=== PATIENT | female | born 1935 | race Caucasian/White ===

== ENCOUNTER 2020-10-08 12:13 | Emergency (ER) | payer MEDICARE ==
[~2020-10-08] VITALS: Ht 160 cm; Wt 52.0 kg
[2020-10-08 12:38] LABS: BILIRUBIN,URINE NEGATIVE (NEG); CLARITY,URINE CLEAR; COLOR,URINE YELLOW; NITRITE,URINE POSITIVE (NEG); PH,URINE 6.5 (<5.0-8.0); PROTEIN,URINE NEGATIVE (NEG-TRACE)
[2020-10-08 12:44] LABS: BACTERIA,URINE MANY /HPF (0-FEW); RBC,URINE 0 /HPF (0-2)
[2020-10-08 12:45] LABS: BARBITURATES NEG (NEG); BENZODIAZEPINES NEG (NEG); CANNABINOIDS NEG (NEG); COCAINE NEG (NEG); METHADONE NEG (NEG); OPIATES NEG (NEG); PHENCYCLIDINE NEG (NEG)
[2020-10-08 12:48] LABS: AMPHETAMINE/METHAMPHETAMINE NEG (NEG)
[2020-10-08 13:25] LABS: BASO # 0.1 x10^3/uL (0.0-0.2); BASO % 1 % (0-3); EOS # 0.2 x10^3/uL (0.0-0.7); EOS % 2 % (0-3); HEMATOCRIT 41.2 % (36.0-47.0); LYMPH # 1.2 x10^3/uL (1.0-4.8); LYMPH % 15 % (24-48); MEAN CORPUSCULAR HEMOGLOBIN 32 pg (25-35); MEAN CORPUSCULAR HGB CONC 34 g/dL (31-37); MEAN CORPUSCULAR VOLUME 95 fL (79-100); MONO % 13 % (0-9); NEUT # 5.5 x10^3/uL (1.8-7.7); NEUT % 68 % (31-73); PLATELET COUNT 408 x10^3/uL (140-400); RED BLOOD COUNT 4.36 x10^6/uL (3.50-5.40); RED CELL DISTRIBUTION WIDTH 14.9 % (11.5-14.5)
[2020-10-08 13:46] LABS: CALCIUM 9.8 mg/dL (8.5-10.1); POTASSIUM 4.3 mmol/L (3.5-5.1)
[2020-10-08 13:52] LABS: ACETAMIN < 2 mcg/ml (10-30); ALBUMIN 3.8 g/dL (3.4-5.0); ALBUMIN/GLOBULIN RATIO 1.2 (1.0-1.7); ETHANOL < 10 mg/dL (0-10); SALIC < 2.8 mg/dL (2.8-20.0); TOTAL BILIRUBIN 0.6 mg/dL (0.2-1.0); TOTAL PROTEIN 7.1 g/dL (6.4-8.2)
[2020-10-08 14:48] VITALS: BP 129/78
--- NOTE | 2020-10-08 14:56 | PHYS DOC ---
Past Medical History Additional Past Medical Histor: ALZHEIMER'S Past Surgical History: Other Additional Past Surgical Histo: UNKNOWN Smoking Status: Unknown if ever smoked Alcohol Use: None Additional Information: UNKNOWN General Adult EDM: Chief Complaint: PSYCH EVALUATION HPI: HPI: Patient is a 85 year old female who presents with here from the [facility] after she called another resident a " nigger" and the other resident and her got into a argument. The facility sent her here to be evaluated and placed possibly in a geriatric psych facility. [facility]. He states that she is acting normal for herself. She is pleasantly confused she does know her name. Patient does not look to have any injuries on hospital. Patient has a history of Alzheimer's, [place], back pain. Review of Systems: Review of Systems: Constitutional: Denies fever or chills. [] Eyes: Denies change in visual acuity. [] HENT: Denies nasal congestion or sore throat. [] Respiratory: Denies cough or shortness of breath. [] Cardiovascular: Denies chest pain or edema. [] GI: Denies abdominal pain, nausea, vomiting, bloody stools or diarrhea. [] : Denies dysuria. [] Musculoskeletal: Denies back pain or joint pain. [] Integument: Denies rash. [] Neurologic: Denies headache, focal weakness or sensory changes. + Worsening dementia with aggression [] Endocrine: Denies polyuria or polydipsia. [] Lymphatic: Denies swollen glands. [] Psychiatric: Denies depression or anxiety. [] Heart Score: C/O Chest Pain: No Risk Factors: Risk Factors: DM, Current or recent (<one month) smoker, HTN, HLP, family history of CAD, obesity. Risk Scores: Score 0 - 3: 2.5% MACE over next 6 weeks - Discharge Home Score 4 - 6: 20.3% MACE over next 6 weeks - Admit for Clinical Observation Score 7 - 10: 72.7% MACE over next 6 weeks - Early Invasive Strategies Allergies: Allergies: Allergies Coded Allergies Type Severity Reaction Last Updated Verified codeine Allergy Intermediate 10/08/20 Yes morphine Allergy Intermediate 10/08/20 Yes Physical Exam: PE: Constitutional: Well developed, well nourished, no acute distress, non-toxic appearance. [] HENT: Normocephalic, atraumatic, bilateral external ears normal, oropharynx moist, no oral exudates, nose normal. [] Eyes: PERRLA, EOMI, conjunctiva normal, no discharge. [] Neck: Normal range of motion, no tenderness, supple, no stridor. [] Cardiovascular:Heart rate regular rhythm, no murmur [] Lungs & Thorax: Bilateral breath sounds clear to auscultation [] Abdomen: Bowel sounds normal, soft, no tenderness, no masses, no pulsatile masses. [] Skin: Warm, dry, no erythema, no rash. [] Back: No tenderness, no CVA tenderness. [] Extremities: No tenderness, no cyanosis, no clubbing, ROM intact, no edema. [] Neurologic: Alert and oriented X 1, normal motor function, normal sensory function, no focal deficits noted. [] Psychologic: Affect normal, judgement normal, mood normal. [] Current Patient Data: Labs: Laboratory Tests Test 10/08/20 12:19 10/08/20 12:25 10/08/20 13:10 SARS-CoV-2 Antigen (Rapid) Negative (NEGATIVE) Urine Collection Type Unknown Urine Color Yellow Urine Clarity Clear Urine pH 6.5 (<5.0-8.0) Urine Specific [place] 1.010 (1.000-1.030) Urine Protein Negative mg/dL (NEG-TRACE) Urine Glucose (UA) Negative mg/dL (NEG) Urine Ketones (Stick) Negative mg/dL (NEG) Urine Blood Negative (NEG) Urine Nitrite Positive (NEG) Urine Bilirubin Negative (NEG) Urine Urobilinogen Dipstick 1.0 mg/dL (0.2 mg/dL) Urine Leukocyte Esterase Moderate (NEG) Urine RBC 0 /HPF (0-2) Urine WBC 5-10 /HPF (0-4) Urine Bacteria Many /HPF (0-FEW) Urine Opiates Screen Neg (NEG) Urine Methadone Screen Neg (NEG) Urine Barbiturates Neg (NEG) Urine Phencyclidine Screen Neg (NEG) Urine Amphetamine/Methamphetamine Neg (NEG) Urine Benzodiazepines Screen Neg (NEG) Urine Cocaine Screen Neg (NEG) Urine Cannabinoids Screen Neg (NEG) Urine Ethyl Alcohol Neg (NEG) White Blood Count 8.0 x10^3/uL (4.0-11.0) Red Blood Count 4.36 x10^6/uL (3.50-5.40) Hemoglobin 14.0 g/dL (12.0-15.5) Hematocrit 41.2 % (36.0-47.0) Mean Corpuscular Volume 95 fL (79-100) Mean Corpuscular Hemoglobin 32 pg (25-35) Mean Corpuscular Hemoglobin Concent 34 g/dL (31-37) Red Cell Distribution Width 14.9 % (11.5-14.5) H Platelet Count 408 x10^3/uL (140-400) H Neutrophils (%) (Auto) 68 % (31-73) Lymphocytes (%) (Auto) 15 % (24-48) L Monocytes (%) (Auto) 13 % (0-9) H Eosinophils (%) (Auto) 2 % (0-3) Basophils (%) (Auto) 1 % (0-3) Neutrophils # (Auto) 5.5 x10^3/uL (1.8-7.7) Lymphocytes # (Auto) 1.2 x10^3/uL (1.0-4.8) Monocytes # (Auto) 1.0 x10^3/uL (0.0-1.1) Eosinophils # (Auto) 0.2 x10^3/uL (0.0-0.7) Basophils # (Auto) 0.1 x10^3/uL (0.0-0.2) Sodium Level 142 mmol/L (136-145) Potassium Level 4.3 mmol/L (3.5-5.1) Chloride Level 106 mmol/L (98-107) Carbon Dioxide Level 30 mmol/L (21-32) Anion Gap 6 (6-14) Blood Urea Nitrogen 17 mg/dL (7-20) Creatinine 1.0 mg/dL (0.6-1.0) Estimated GFR (Cockcroft-Gault) 53.0 BUN/Creatinine Ratio 17 (6-20) Glucose Level 101 mg/dL (70-99) H Calcium Level 9.8 mg/dL (8.5-10.1) Total Bilirubin 0.6 mg/dL (0.2-1.0) Aspartate Amino Transferase (AST) 13 U/L (15-37) L Alanine Aminotransferase (ALT) 20 U/L (14-59) Alkaline Phosphatase 67 U/L (46-116) Total Protein 7.1 g/dL (6.4-8.2) Albumin 3.8 g/dL (3.4-5.0) Albumin/Globulin Ratio 1.2 (1.0-1.7) Salicylates Level < 2.8 mg/dL (2.8-20.0) L Salicylate Last Dose Date Salicylate Last Dose Time Acetaminophen Level < 2 mcg/ml (10-30) L Acetaminophen Last Dose Date Acetaminophen Last Dose Time Ethyl Alcohol Level < 10 mg/dL (0-10) Laboratory Tests 10/08/20 13:10 Laboratory Tests 10/08/20 13:10 Vital Signs: Vital Signs Date Time Temp Pulse Resp B/P (MAP) Pulse Ox O2 Delivery O2 Flow Rate FiO2 10/08/20 12:13 98.9 54 16 134/66 97 Room Air 98.9 EKG: EKG: [] Radiology/Procedures: Radiology/Procedures: [] Course & Med Decision Making: Course & Med Decision Making Pertinent Labs and Imaging studies reviewed. (See chart for details) See HPI. Alert and oriented to self. Ambulatory with steady gait. Speaks in full clear sentences. She does have a urinary tract infection with nitrites. She does have a DNR. The son states that he does not want her treated with antibiotics for her urinary tract infection as this will preserve her life. He states that she does not want anything that would preserve her life. The nurse tried to explain to the son that this is just antibiotics and the son stated "if her infection is not treated then she will correct?". The nurse stated yes and the son states "than do not want her treat her." Patient was already given Fosfomycin in the ED. patient seen by PAT team and is being discharged back ho or the paper. [] Che Disclaimer: Che Disclaimer: This electronic medical record was generated, in whole or in part, using a voice recognition dictation system. Departure Departure Impression: Primary Impression: UTI (urinary tract infection) Qualified Codes: N39.0 - Urinary tract infection, site not specified Additional Impression: Psychiatric complaint Disposition: HOME / SELF CARE / HOMELESS Condition: STABLE Patient Instructions: Urinary Tract Infection Additional Instructions: Recheck urine in 1 week. Drink plenty of fluids. Follow-up with primary care provider CANDI JAUREGUI APRN Oct 08, 2020 14:56
[2020-10-08] MEDS ORDERED: FOSFOMYCIN TROMETHAMINE 3 GM PACKET PO ONE (15:45)
== END 2020-10-08 17:33 | disposition home or self-care (01) ==
LOC: ER 12:13
DX: G30.9 Alzheimer's disease, unspecified (principal); F02.80 Dementia in other diseases classified elsewhere, unspecified severity, without behavioral disturbance, psychotic disturbance, mood disturbance, and anxiety; Z20.822 Contact with and (suspected) exposure to COVID-19; N39.0 Urinary tract infection, site not specified; I25.2 Old myocardial infarction; Z88.5 Allergy status to narcotic agent
CPT/HCPCS: 36415; 80053; 80307; 80329; 81001; 85025; 87086; 87426; 99285; G0480; U0003; U0005

== ENCOUNTER 2020-11-15 14:37 | Emergency (ER) | payer MEDICARE ==
[~2020-11-15] VITALS: Ht 152.4 cm; Wt 53.9 kg
[2020-11-15] MEDS ORDERED: fentaNYL PF VIAL 100 MCG/2 ML VIAL IVP ONE (15:45)
--- NOTE | 2020-11-15 16:50 | RAD ---
Limited single AP view of the right forearm. INDICATION: Known fracture. FINDINGS: There is a comminuted appearing fracture of the distal radius. There is subcutaneous swelling. Ulnar bulge and fracture cannot be evaluated for. Due to the positioning of the limited single view the car pal bones cannot be evaluated. Electronically signed by: Brennen Messer MD (11/15/2020 4:48 PM) [facility]
--- NOTE | 2020-11-15 17:14 | PHYS DOC ---
Past Medical History Additional Past Medical Histor: ALZHEIMER'S Past Surgical History: Other Additional Past Surgical Histo: UNKNOWN Smoking Status: Former Smoker Alcohol Use: None General Adult EDM: Chief Complaint: WRIST PAIN HPI: HPI: Patient is a 85 year old female with history of advanced dementia who presents with a known fracture to her left ulna and radius. Patient is unable to provide history, but her son at bedside reports that the [facility] told him that she injured herself in a chair yesterday. He is unsure whether she fell and hit her arm against a chair, or if she was agitated and hit her arm against a chair. Patient son states her baseline mentation is sometimes oriented to person only. He also states that she tends to be easily aggravated in hospital settings. The son does provide reports on x-ray reading from [facility] this morning, which states she has transverse fracture through both radius and ulna that are minimally angulated. This is the only history that son and patient are able to provide. Review of Systems: Review of Systems: Unable to obtain secondary to patient's demented status. Heart Score: C/O Chest Pain: N/A Current Medications: Current Medications Medications (Trade) Dose Ordered Sig/Liliana Start Time Stop Time Status Last Admin Dose Admin Fentanyl Citrate (Fentanyl 2ml Vial) 50 mcg 1X ONCE 11/15/20 15:45 11/15/20 15:46 11/15/20 15:54 50 MCG Lorazepam (Ativan Inj) 2 mg 1X ONCE 11/15/20 16:30 11/15/20 16:31 11/15/20 16:36 2 MG Allergies: Allergies: Allergies Coded Allergies Type Severity Reaction Last Updated Verified codeine Allergy Intermediate 10/08/20 Yes morphine Allergy Intermediate 10/08/20 Yes Physical Exam: PE: Constitutional: Well developed, well nourished, no acute distress, non-toxic appearance. [] HENT: Normocephalic, atraumatic, bilateral external ears normal, oropharynx moist, no oral exudates, nose normal. [] Eyes: PERRLA, EOMI, conjunctiva normal, no discharge. [] Neck: Normal range of motion, no tenderness, supple, no stridor. [] Cardiovascular:Heart rate regular rhythm, no murmur [] Lungs & Thorax: Bilateral breath sounds clear to auscultation [] Abdomen: Bowel sounds normal, soft, no tenderness, no masses, no pulsatile mass es. [] Skin: Warm, dry, no erythema, no rash. [] Back: No tenderness, no CVA tenderness. [] Extremities: No tenderness, no cyanosis, no clubbing, ROM intact, no edema. [] Neurologic: Alert and oriented X 3, normal motor function, normal sensory function, no focal deficits noted. [] Psychologic: Affect normal, judgement normal, mood normal. [] Current Patient Data: Vital Signs: Vital Signs Date Time Temp Pulse Resp B/P (MAP) Pulse Ox O2 Delivery O2 Flow Rate FiO2 11/15/20 18:12 46 14 139/68 (91) 95 Room Air 11/15/20 17:32 50 17 136/65 (88) 94 Room Air 11/15/20 16:32 50 28 129/82 (98) 98 Room Air 11/15/20 15:54 16 93 Room Air 11/15/20 15:30 98.0 51 36 132/67 (88) 96 Room Air 98.0 Radiology/Procedures: Radiology/Procedures: PROCEDURE: FOREARM LEFT Limited single AP view of the right forearm. INDICATION: Known fracture. FINDINGS: There is a comminuted appearing fracture of the distal radius. There is subcutaneous swelling. Ulnar bulge and fracture cannot be evaluated for. Due to the positioning of the limited single view the carpal bones cannot be evaluated. Electronically signed by: Brennen Messer MD (11/15/2020 4:48 PM) [facility] PROCEDURE: WRIST 3V LEFT XR LT WRIST 3VIEWS History: Reason: fracture on forearm view / Spl. Instructions: / History: Technique: 3 views left wrist Comparison: November 15, 2020 4 Findings: Acute comminuted impacted intra-articular left distal radial fracture with dorsal angulation. No dislocation. Mildly displaced ulnar styloid fracture. Impression: 1. Acute comminuted intra-articular impacted distal radius fracture with dorsal angulation. 2. Acute mildly displaced ulnar styloid fracture. Electronically signed by: Jose C Patel DO (11/15/2020 6:05 PM) [facility] Course & Med Decision Making: Course & Med Decision Making Pertinent Labs and Imaging studies reviewed. (See chart for details) Patient's son did bring report from x-rays ordered by the [facility] today, however the images were not included. Prior to x-ray images, patient was provided with some fentanyl for pain control. When new films were attempted to be take today, the patient became agitated and we were not able to get full v iews. Patient was given Ativan, and wrist x-rays were able to be obtained. While the original report says transverse fractures, our images show comminuted fractures to both the distal radius and ulna. Patient is placed in a splint and sling and has instructions to follow-up with Ortho soon as possible tomorrow. Son was provided with information in order to obtain an appointment. Patient's [facility] will be able to provide her with adequate pain control. Son understands and is agreeable to discharge plan. Dragon Disclaimer: Dragon Disclaimer: This electronic medical record was generated, in whole or in part, using a voice recognition dictation system. Splinting Patient son was informed of findings. Sugar tong splint applied by FIDEL Hernandez. The splint is checked by me, with adequate stabilization of the injury. Distal capillary refill less than 2 seconds and distal neurologic function intact according to baseline. Departure Departure Impression: Primary Impression: Closed fracture of distal radius and ulna Qualified Codes: S52.502A - Unspecified fracture of the lower end of left radius, initial encounter for closed fracture; S52.602A - Unspecified fracture of lower end of left ulna, initial encounter for closed fracture Disposition: 01 HOME / SELF CARE / HOMELESS Condition: STABLE Referrals: CHELITA ORDONEZ MD (PCP) SAIGE ROTH DO Patient Instructions: Splint Care, [id number] Additional Instructions: Because the bones seem to be fractured in multiple places, the fracture is not reduced at this time. Splint was placed, and you will need to follow-up with Ortho as soon as possible for further management. A splint was placed, which should stay on until the [facility] orthopedists evaluate. Please return to the emergency department for uncontrolled pain or signs of compartment syndrome (cool/pale skin, loss of pulses, numbness and tingling). CHAD ESPINOZA Nov 15, 2020 17:14
--- NOTE | 2020-11-15 18:07 | RAD ---
XR LT WRIST 3VIEWS History: Reason: fracture on forearm view / Spl. Instructions: / History: Technique: 3 views left wrist Comparison: November 15, 2020 4 Findings: Acute comminuted impacted intra-articular left distal radial fracture with dorsal angulation. No disl ocation. Mildly displaced ulnar styloid fracture. Impression: 1. Acute comminuted intra-articular impacted distal radius fracture with dorsal angulation. 2. Acute mildly displaced ulnar styloid fracture. Electronically signed by: Jose C Patel DO (11/15/2020 6:05 PM) [facility]
[2020-11-15 18:12] VITALS: BP 139/68
== END 2020-11-15 19:00 | disposition home or self-care (01) ==
LOC: ER 14:37
DX: S52.502A Unspecified fracture of the lower end of left radius, initial encounter for closed fracture (principal); S52.602A Unspecified fracture of lower end of left ulna, initial encounter for closed fracture; G30.9 Alzheimer's disease, unspecified; F02.80 Dementia in other diseases classified elsewhere, unspecified severity, without behavioral disturbance, psychotic disturbance, mood disturbance, and anxiety; Z87.891 Personal history of nicotine dependence; Z88.5 Allergy status to narcotic agent; W18.09XA Striking against other object with subsequent fall, initial encounter; Y93.89 Activity, other specified; Y92.89 Other specified places as the place of occurrence of the external cause; Y99.8 Other external cause status
CPT/HCPCS: 29125; 73090; 73120; 96374; 96375; 99285; A4565; J2060; J3010

== ENCOUNTER 2021-01-05 13:44 | Emergency (ER) | payer MEDICARE ==
[~2021-01-05] VITALS: Ht 160 cm; Wt 55.0 kg
--- NOTE | 2021-01-05 15:16 | PHYS DOC ---
Past Medical History Additional Past Medical Histor: ALZHEIMER'S Past Surgical History: Other Additional Past Surgical Histo: unknown due to dementia Smoking Status: Unknown if ever smoked Alcohol Use: None General Adult EDM: Chief Complaint: MECHANICAL FALL HPI: HPI: Patient is a 85 year old female with history of dementia who presents following fall. Was reportedly unwitnessed and occurred around 9 AM. Patient was monitored at her nursing facility, and was noted to have some increasing somnolence and so EMS was called. She struck her face and has right-sided skin tears and maxillary bruising. She has difficulty providing any history due to her dementia, but does complain of headache/face pain, and states that her abdomen hurt earlier but does not hurt currently. Review of Systems: Review of Systems: ROS limited due to dementia Heart Score: C/O Chest Pain: N/A Risk Factors: Risk Factors: DM, Current or recent (<one month) smoker, HTN, HLP, family history of CAD, obesity. Risk Scores: Score 0 - 3: 2.5% MACE over next 6 weeks - Discharge Home Score 4 - 6: 20.3% MACE over next 6 weeks - Admit for Clinical Observation Score 7 - 10: 72.7% MACE over next 6 weeks - Early Invasive Strategies Allergies: Allergies: Allergies Coded Allergies Type Severity Reaction Last Updated Verified codeine Allergy Intermediate 01/05/21 Yes morphine Allergy Intermediate 01/05/21 Yes Physical Exam: PE: Constitutional: Well developed, well nourished, no acute distress, non-toxic appearance. [] HENT: She has an abrasion on her right frontal forehead. Has bruising over her right maxillary sinus with underlying tenderness. Extraocular movements are intact. Neck: Normal range of motion, no tenderness, supple, no stridor. [] Cardiovascular:Heart rate regular rhythm, no murmur [] Lungs & Thorax: Bilateral breath sounds clear to auscultation. Bilateral chest wall pain with palpation. [] Abdomen: Diffuse abdominal tenderness to palpation and involuntary guarding. Skin: Warm, dry, no erythema, no rash. [] Back: No tenderness, no CVA tenderness. [] Extremities: She has some chronic appearing swelling around her left wrist, but does not have any tenderness to palpation or pain with range motion on multiple exams. Neurologic: Alert and oriented to person, speech normal, has difficulty answering questions about recent history, normal motor function, normal sensory function, no focal deficits noted. [] Psychologic: Affect normal, judgement normal, mood normal. [] Current Patient Data: Vital Signs: Vital Signs Date Time Temp Pulse Resp B/P (MAP) Pulse Ox O2 Delivery O2 Flow Rate FiO2 01/05/21 13:53 98.4 51 16 104/66 (79) 98 Room Air 98.4 EKG: EKG: [] Radiology/Procedures: Radiology/Procedures: [] Impression: [facility] [address] [place] [address] IMAGING REPORT Signed PATIENT: AUDREY FUENTES ACCOUNT: [id number] : 1935 LOCATION: ER AGE: 85 SEX: F EXAM STATUS: REG ER ORD. PHYSICIAN: RESHMA BRANDT MD REASON: FALL, RT SIDE FACIAL INJURY PROCEDURE: CT MAXILLOFACIAL WO CONTRAST EXAM: 1. CT HEAD WITHOUT CONTRAST. 2. CT FACIAL BONES WITHOUT CONTRAST. 3. CT CERVICAL SPINE WITHOUT CONTRAST. HISTORY: Fall, head and facial trauma. TECHNIQUE: Computed tomography of the head, facial bones and cervical spine was performed without intravenous contrast. One or more of the following individualized dose reduction techniques were utilized for this examination: 1. Automated exposure control. 2. Adjustment of the mA and/or kV according to patient size. 3. Use of iterative reconstruction technique. COMPARISON: None. FINDINGS: There is no intracranial hemorrhage. There are chronic infarcts bilaterally in the basal ganglia. There is mild chronic microangiopathic white matter change elsewhere. Prominence of the lateral ventricles and hemispheric sulci indicates mild atrophy. The temporal bones are unremarkable. The calvarium reveals no suspicious lesions. No facial fractures are identified. The visualized paranasal sinuses appear clear. There is mild soft tissue swelling lateral to the right orbit. There is no intraorbital injury. There are changes of bilateral cataract surgery. There is <2 mm anterolisthesis at C4-5. There is mild osteoarthritis at C1/2. No fractures are identified. Degenerative disc disease is moderate to severe at C5-6 and mild at C6-7. There is no prevertebral soft tissue swelling. At C2-3, there is no significant stenosis. At C3-4, facet osteoarthritis is moderate to severe on the right and moderate on the left. Neural foraminal stenosis is moderate on the right and mild on the left. At C4-5, there is a small posterior disc bulge. Facet osteoarthritis is moderate to severe on the left greater than right. Uncovertebral osteoarthritis is mild. Neural foraminal stenosis is moderate on the left and moderate to severe on the right. At C5-6, there is a small posterior disc-osteophyte complex. Uncovertebral osteoarthritis is moderate bilaterally. Neural foraminal stenosis is moderate to severe on the left greater than right. At C6-7, there is a small posterior disc bulge. There is no significant stenosis. IMPRESSION: 1. No acute intracranial findings. 2. Small bilateral basal ganglia lacunar infarcts. Mild atrophy. 3. No facial fractures. Mild right periorbital swelling. 4. No cervical fracture or acute malalignment. Moderate degenerative changes as above. Electronically signed by: Ryan Ramos MD (01/05/2021 5:20 PM) [facility] DICTATED and SIGNED BY: RESHMA RAMOS MD DATE: 01/05/21 [id number] 0 [facility] [address] [place] [address] IMAGING REPORT Signed PATIENT: AUDREY FUENTES ACCOUNT: [id number] : 1935 LOCATION: ER AGE: 85 SEX: F EXAM STATUS: REG ER ORD. PHYSICIAN: RESHMA BRANDT MD REASON: FALL, BILATERAL RIBS PAIN, ABDOMINAL PAIN PROCEDURE: CT CHEST ABD PELVIS W/CONTRAST EXAM: CT OF THE CHEST, ABDOMEN AND PELVIS WITH CONTRAST. HISTORY: Fall, trauma. TECHNIQUE: Computed tomography of the chest, abdomen and pelvis was performed after the intravenous administration of iodinated contrast. One or more of the following individualized dose reduction techniques were utilized for this examination: 1. Automated exposure control. 2. Adjustment of the mA and/or kV according to patient size. 3. Use of iterative reconstruction technique. COMPARISON: None. FINDINGS: Bone windows reveal no suspicious lesions. There is a chronic healed fracture of the left proximal humerus. There is grade 1/2 anterolisthesis at L5-S1 from a bilateral facet osteoarthritis. There is mild retrolisthesis at L1- 2. There are no pathologically enlarged mediastinal or axillary lymph nodes. There is a trace left pleural effusion. There is no pericardial effusion. The heart is mildly enlarged. There are diffuse coronary atherosclerotic calcifications. There is a tiny left pneumothorax. No displaced rib fractures are appreciable. Interstitial opacities in the lung bases are consistent with a combination of interstitial lung disease and mild pulmonary edema. A component of paraseptal emphysema is noted. The gallbladder is unremarkable. The common duct is mildly dilated at 8 mm. No cause for distal obstruction is seen. There are the liver, pancreas, spleen, kidneys and adrenal glands are unremarkable. There are no pathologically enlarged lymph nodes. There is no free fluid or air. Stool throughout the colon is consistent with constipation. The appendix is not inflamed. There is no small bowel obstruction. IMPRESSION: 1. Tiny left pneumothorax. Trace left pleural effusion. No displaced rib fractures. 2. No evidence of visceral injury within the abdomen/pelvis. 3. Interstitial lung disease and mild paraseptal emphysema, possibly with mild superimposed pulmonary edema. 4. Mild cardiomegaly. 5. Mild constipation. These findings were called to Dr. Brandt by Derrick Ramos on 01/05/2021 at 5:36 PM. Electronically signed by: Ryan Ramos MD (01/05/2021 5:36 PM) [facility] DICTATED and SIGNED BY: RESHMA RAMOS MD DATE: 01/05/21 [id number] 0 Course & Med Decision Making: Course & Med Decision Making Pertinent Labs and Imaging studies reviewed. (See chart for details) Patient 85-year-old female with history of severe dementia who presents with an unwitnessed fall and evidence of facial trauma. On arrival has evidence of facial trauma with right maxillary bruising and an abrasion on her right forehead. Has tenderness of the chest wall as well as the abdomen. CT imaging ordered of head, neck, facial bones, chest, abd, pelvis. 1516 CT head, C-spine, face without acute traumatic injury. CT chest/abdomen/pelvis shows a tiny anterior left pneumothorax without associated rib fracture. There has been many hours since the fall, so this is a low risk for progression. I discussed this finding with the son and POA, Mansoor Jimenez, who states that the patient would not want any invasive procedures, oxygen, or life prolonging measures. With this in mind, I do not feel that a observation in the emergency department would be in the patient's best interest, as she is becoming increasingly agitated and attempting to wander the halls frequently. POA states that she is essentially comfort measures only at this time and would not want hospitalization.\ [id number] Dragon Disclaimer: Dragon Disclaimer: This electronic medical record was generated, in whole or in part, using a voice recognition dictation system. Departure Departure Impression: Primary Impression: Pneumothorax, left Additional Impression: Facial abrasion Disposition: 01 HOME / SELF CARE / HOMELESS Condition: IMPROVED Referrals: CHELITA ORDONEZ MD (PCP) Additional Instructions: Audrey has a tiny pneumothorax on the left without any associated rib fractures or other traumatic injuries identified. I discussed this with the patient's POA, who has requested no further observation, or aggressive measures. Please monitor her for increasing shortness of breath that requires symptomatic management. If this does occur please have her return to the emergency department. Please keep the facial abrasions clean and dressed. You can use topical antibiotic ointment such as Neosporin or bacitracin. RESHMA BRANDT MD Jan 05, 2021 15:16
[2021-01-05 16:06] VITALS: BP 103/70
[2021-01-05 16:14] LABS: BASO # 0.1 x10^3/uL (0.0-0.2); BASO % 1 % (0-3); EOS # 0.3 x10^3/uL (0.0-0.7); EOS % 3 % (0-3); HEMATOCRIT 37.9 % (36.0-47.0); HEMOGLOBIN 12.5 g/dL (12.0-15.5); LYMPH # 1.5 x10^3/uL (1.0-4.8); LYMPH % 21 % (24-48); MEAN CORPUSCULAR HEMOGLOBIN 32 pg (25-35); MEAN CORPUSCULAR HGB CONC 33 g/dL (31-37); MEAN CORPUSCULAR VOLUME 95 fL (79-100); MONO # 1.1 x10^3/uL (0.0-1.1); MONO % 14 % (0-9); NEUT # 4.5 x10^3/uL (1.8-7.7); NEUT % 61 % (31-73); PLATELET COUNT 411 x10^3/uL (140-400); RED BLOOD COUNT 3.98 x10^6/uL (3.50-5.40); RED CELL DISTRIBUTION WIDTH 14.8 % (11.5-14.5); WHITE BLOOD COUNT 7.5 x10^3/uL (4.0-11.0)
[2021-01-05 16:37] LABS: CALCIUM 8.9 mg/dL (8.5-10.1); CREATININE 0.8 mg/dL (0.6-1.0); GFR 68.5; POTASSIUM 3.9 mmol/L (3.5-5.1)
[2021-01-05 16:43] LABS: ALBUMIN 3.1 g/dL (3.4-5.0); ALBUMIN/GLOBULIN RATIO 1.1 (1.0-1.7); TOTAL BILIRUBIN 0.6 mg/dL (0.2-1.0)
[2021-01-05] MEDS ORDERED: IOHEXOL 300 MG/ML 100ML VIAL. IV ONE (16:45)
--- NOTE | 2021-01-05 17:23 | RAD ---
EXAM: 1. CT HEAD WITHOUT CONTRAST. 2. CT FACIAL BONES WITHOUT CONTRAST. 3. CT CERVICAL SPINE WITHOUT CONTRAST. HISTORY: Fall, head and facial trauma. TECHNIQUE: Computed tomography of the head, facial bones and cervical spine was performed without int ravenous contrast. One or more of the following individualized dose reduction techniques were utilize d for this examination: 1. Automated exposure control. 2. Adjustment of the mA and/or kV according to patient size. 3. Use of iterative reconstruction technique. COMPARISON: None. FINDINGS: There is no intracranial hemorrhage. There are chronic infarcts bilaterally in the basal g anglia. There is mild chronic microangiopathic white matter change elsewhere. Prominence of the later al ventricles and hemispheric sulci indicates mild atrophy. The temporal bones are unremarkable. The calvarium reveals no suspicious lesions. No facial fractures are identified. The visualized paranasal sinuses appear clear. There is mild soft tissue swelling lateral to the right orbit. There is no intraorbital injury. There are changes of bi lateral cataract surgery. There is <2 mm anterolisthesis at C4-5. There is mild osteoarthritis at C1/2. No fractures are identi fied. Degenerative disc disease is moderate to severe at C5-6 and mild at C6-7. There is no preverteb ral soft tissue swelling. At C2-3, there is no significant stenosis. At C3-4, facet osteoarthritis is moderate to severe on the right and moderate on the left. Neural for aminal stenosis is moderate on the right and mild on the left. At C4-5, there is a small posterior disc bulge. Facet osteoarthritis is moderate to severe on the lef t greater than right. Uncovertebral osteoarthritis is mild. Neural foraminal stenosis is moderate on the left and moderate to severe on the right. At C5-6, there is a small posterior disc-osteophyte complex. Uncovertebral osteoarthritis is moderate bilaterally. Neural foraminal stenosis is moderate to severe on the left greater than right. At C6-7, there is a small posterior disc bulge. There is no significant stenosis. IMPRESSION: 1. No acute intracranial findings. 2. Small bilateral basal ganglia lacunar infarcts. Mild atrophy. 3. No facial fractures. Mild right periorbital swelling. 4. No cervical fracture or acute malalignment. Moderate degenerative changes as above. Electronically signed by: Ryan Ramos MD (01/05/2021 5:20 PM) [facility]
--- NOTE | 2021-01-05 17:38 | RAD ---
EXAM: CT OF THE CHEST, ABDOMEN AND PELVIS WITH CONTRAST. HISTORY: Fall, trauma. TECHNIQUE: Computed tomography of the chest, abdomen and pelvis was performed after the intravenous a dministration of iodinated contrast. One or more of the following individualized dose reduction techn iques were utilized for this examination: 1. Automated exposure control. 2. Adjustment of the mA and/or kV according to patient size. 3. Use of iterative reconstruction technique. COMPARISON: None. FINDINGS: Bone windows reveal no suspicious lesions. There is a chronic healed fracture of the left p roximal humerus. There is grade 1/2 anterolisthesis at L5-S1 from a bilateral facet osteoarthritis. T here is mild retrolisthesis at L1-2. There are no pathologically enlarged mediastinal or axillary lymph nodes. There is a trace left pleur al effusion. There is no pericardial effusion. The heart is mildly enlarged. There are diffuse roman ry atherosclerotic calcifications. There is a tiny left pneumothorax. No displaced rib fractures are appreciable. Interstitial opacities in the lung bases are consistent with a combination of interstitial lung disease and mild pulmonary edema. A component of paraseptal emphysema is noted. The gallbladder is unremarkable. The common duct is mildly dilated at 8 mm. No cause for distal obstr uction is seen. There are the liver, pancreas, spleen, kidneys and adrenal glands are unremarkable. There are no pathologically enlarged lymph nodes. There is no free fluid or air. Stool throughout the colon is consistent with constipation. The appendix is not inflamed. There is no small bowel obstruc tion. IMPRESSION: 1. Tiny left pneumothorax. Trace left pleural effusion. No displaced rib fractures. 2. No evidence of visceral injury within the abdomen/pelvis. 3. Interstitial lung disease and mild paraseptal emphysema, possibly with mild superimposed pulmonary edema. 4. Mild cardiomegaly. 5. Mild constipation. These findings were called to Dr. Siegel by Derrick Ramos on 01/05/2021 at 5:36 PM. Electronically signed by: Ryan Ramos MD (01/05/2021 5:36 PM) [facility]
[2021-01-05] MEDS ORDERED: HALOPERIDOL LACTATE 5 MG/ML VIAL. ONE (17:59)
[2021-01-05] MEDS ORDERED: HALOPERIDOL LACTATE 5 MG/ML VIAL. IM ONE (18:15)
== END 2021-01-05 18:36 | disposition home or self-care (01) ==
LOC: ER 13:44
DX: S00.83XA Contusion of other part of head, initial encounter (principal); S00.81XA Abrasion of other part of head, initial encounter; J93.9 Pneumothorax, unspecified; R10.84 Generalized abdominal pain; R22.32 Localized swelling, mass and lump, left upper limb; G30.9 Alzheimer's disease, unspecified; F02.80 Dementia in other diseases classified elsewhere, unspecified severity, without behavioral disturbance, psychotic disturbance, mood disturbance, and anxiety; Z88.5 Allergy status to narcotic agent; W18.09XA Striking against other object with subsequent fall, initial encounter; Y93.89 Activity, other specified; Y92.89 Other specified places as the place of occurrence of the external cause; Y99.8 Other external cause status
CPT/HCPCS: 36415; 70450; 70486; 71260; 72125; 74177; 80053; 85025; 96372; 99285; J1630; Q9967